=== PATIENT | male | born 2000 | race Caucasian/White ===

== ENCOUNTER 2019-02-04 19:52 | Inpatient (IN) | payer MEDICAID ==
[~2019-02-04] VITALS: Ht 180.3 cm; Wt 75.9 kg
[~2019-02-04 19:52] MED LIST: FOLI1TAB6 PO; GABA300C10 PO; THIA50CA PO
[2019-02-04] MEDS ORDERED: ONDANSETRON HCL 4 MG/2 ML VIAL ONE ×2 (20:27)
[2019-02-04] MEDS ORDERED: SODIUM CHLORIDE 0.9% 1,000 ML IVB ONE (20:39)
[2019-02-04] MEDS ORDERED: ACETAMINOPHEN 325 MG TAB PO ONE (21:00)
[2019-02-04] MEDS ORDERED: ONDANSETRON HCL 4 MG/2 ML VIAL IV ONE (21:00)
[2019-02-04 21:36] LABS: Basophils # (auto) 0 uL; Eosinophils # (auto) 0 uL; Eosinophils % (auto) 0.2 % (0.0-7.0); Lymphocytes % (auto) 6.3 % (10.0-50.0)
[2019-02-04 21:38] LABS: Basophils % (auto) 0.1 % (0.0-2.0); Hematocrit 46.5 % (41.0-53.0); Hemoglobin 16.4 g/dL (13.5-17.5); Lymphocytes # (auto) 0.7 uL; Mean Corpuscular Hemoglobin 34.6 pg (28.0-32.0); Mean Corpuscular Hgb Conc. 35.2 g/dL (32.0-36.0); Mean Corpuscular Volume 98.2 fL (80.0-100.0); Monocytes # (auto) 0.5 uL; Monocytes % (auto) 3.9 % (0.0-12.0); Neutrophils # (auto) 10.5 uL; Neutrophils % (auto) 89.5 % (37.0-80.0); Platelet Count (auto) 258 10^3/uL (140-450); Red Blood Cells 4.74 10^6/uL (4.5-5.90); Red Cell Distribution Width 12.6 % (11.8-14.3); White Blood Cell 11.7 10^3/uL (4.4-10.8)
[2019-02-04 21:57] LABS: Albumin 4.3 g/dL (3.4-5.0); Anion Gap 9 (5-15); Blood Alcohol < 3.0 mg/dL (0-5); Blood Urea Nitrogen 11 mg/dL (7-18); Calcium 8.7 mg/dL (8.5-10.1); Carbon Dioxide 27 mmol/L (21-32); Chloride 103 mmol/L (98-107); Glucose 102 mg/dL (74-106); Potassium 4.5 mmol/L (3.5-5.1); Sodium 139 mmol/L (136-145)
[2019-02-04 21:59] LABS: Alcohol, Urine < 3.0 mg/dL (0-5); Amphetamine Screen, Urine NEGATIVE (NEGATIVE); Barbiturate Scree,Urine NEGATIVE (NEGATIVE); Benzodiazephine Screen, Urine NEGATIVE (NEGATIVE); Cannabinoid Screen, Urine POSITIVE (NEGATIVE); Cocaine Screen, Urine NEGATIVE (NEGATIVE); Phencyclidine Screen, Urine NEGATIVE (NEGATIVE)
[2019-02-04] MEDS ORDERED: NICOTINE 21MG/24 HR TOPICAL PATCH TD ONE (22:00)
[2019-02-04 22:01] LABS: Alanine Aminotransferase 28 U/L (16-61); Alkaline Phosphatase 68 U/L (45-117); Aspartate Aminotransferase 25 U/L (15-37); BUN/Creatinine Ratio 10.7; Bilirubin, Total 0.4 mg/dL (0.2-1.0); GFR African American 118 mL/min; GFR Non-African American 98 mL/min; Total Protein 7.5 g/dL (6.4-8.2)
[2019-02-04 22:06] LABS: Opiate Scree,Urine NEGATIVE (NEGATIVE)
[2019-02-04] MEDS ORDERED: DOCUSATE SOD 100 MG CAP PO PRN (22:15)
[2019-02-04] MEDS ORDERED: HYDROcodone-ACET 5/325MG TAB PO PRN (22:15)
[2019-02-04] MEDS ORDERED: ACETAMINOPHEN 325 MG TAB PO PRN (22:15)
[2019-02-04] MEDS ORDERED: ONDANSETRON HCL 4 MG/2 ML VIAL IV PRN (22:15)
[2019-02-04] MEDS ORDERED: PHENYTOIN IV DILANTIN 1,000 MG in SODIUM CHL 0.9% 250 ML IV ONE (22:45)
[2019-02-04 23:20] VITALS: BP 157/70
--- NOTE | 2019-02-04 23:20 | NUR ---
MS admit from ER LILLY KOVACS admitted to [facility]. Patient oriented to AFTAB BARRY RN primary RN, unit, room, bed, and unit policies regarding patient care and visiting hours. Patient weighed by bed-scale and encouraged to call if he needs something. Fall, safety, and seizures precautions in place. Call light within reach. All questions and concerns addressed, patient verbalized understanding.
--- NOTE | 2019-02-04 23:25 | NUR ---
Seizure-like Activity Upon performing physical assessment, patient began to say, "Fuck, that is messed up . . . fuck . . fuck . . .". Attempted to ask patient what was wrong when seizure-like activity began. All surrounding objects removed off of patient. Patient presented with abrupt muscle tension, violent shaking of all four extremities, and throat gurgling. Patient was turned to his right side, and began to drool. Attempted to administer oxygen and attempted to suction saliva on outer surface of mouth, but due to violent shaking, attempt was unsuccessful. All four side rails raised. Staff members were instructed to step aside to prevent risk of injury. Hospitalist was paged by primary RNSonja regarding Ativan order. 2330: Seizure-like activity stopped. Additional RN performed nail-bed pressure, which patient responded to. Attempted to ask patient orientation questions, patient unable to respond at this time. Remained with patient since onset of seizure-like activity. 2341: PRN Ativan administered by primary RNSonja (see eMar). Patient resting quietly in bed with eyes closed, even and unlabored breathing. Fall, safety, and seizure precautions in place. Call light within reach. Will continue to monitor.
--- NOTE | 2019-02-04 23:30 | NUR ---
HOSPITALIST Received call back from hospitalist Bryant ESCALONA. New orders received, read back and verified. Will input and carry out
[2019-02-04] MEDS ORDERED: LORazepam 2MG/ML-1ML VIAL IV PRN (23:45)
[2019-02-04] MEDS ORDERED: PHENYTOIN SODIUM 50 MG/ML 2ML VIAL IV ONE (23:59)
[2019-02-05] MEDS ORDERED: PHENYTOIN SODIUM 50 MG/ML 2ML VIAL IV ONE
--- NOTE | 2019-02-05 | NUR ---
IV DRESSING Dressing changed to IV access at this time. Patient tolerated well. Will continue to monitor
--- NOTE | 2019-02-05 00:15 | NUR ---
Orientation Patient aroused to name upon entering room. Patient oriented x4, but lethargic possibly due to prn Ativan (see eMar). Attempted to ask admission questions at this time, but patient unable to stay awake. Will attempt admission at later time.
[2019-02-05] MEDS: SODIUM CHLORIDE 0.9% 1,000 ML IV SCH ×3 (00:56→18:17)
[2019-02-05 05:00] VITALS: BP 107/60
[2019-02-05 05:11] LABS: Basophils # (auto) 0 uL; Eosinophils # (auto) 0 uL; Lymphocytes # (auto) 1.4 uL; Monocytes # (auto) 0.7 uL; White Blood Cell 10.5 10^3/uL (4.4-10.8)
[2019-02-05 05:16] LABS: Basophils % (auto) 0.1 % (0.0-2.0); Hematocrit 43.7 % (41.0-53.0); Hemoglobin 15.3 g/dL (13.5-17.5); Lymphocytes % (auto) 13.5 % (10.0-50.0); Mean Corpuscular Hemoglobin 34.4 pg (28.0-32.0); Mean Corpuscular Hgb Conc. 35.1 g/dL (32.0-36.0); Mean Corpuscular Volume 97.9 fL (80.0-100.0); Monocytes % (auto) 6.8 % (0.0-12.0); Neutrophils # (auto) 8.3 uL; Neutrophils % (auto) 79.6 % (37.0-80.0); Nucleated Red Blood Cells % 0.1 %; Platelet Count (auto) 243 10^3/uL (140-450); Red Blood Cells 4.46 10^6/uL (4.5-5.90); Red Cell Distribution Width 12.3 % (11.8-14.3)
[2019-02-05 05:35] LABS: Calcium 8.4 mg/dL (8.5-10.1); Potassium 4.3 mmol/L (3.5-5.1)
[2019-02-05 05:37] LABS: BUN/Creatinine Ratio 10.6
--- NOTE | 2019-02-05 07:26 | NUR ---
Opening Shift Note Assumed care of patient, asleep and awakes to name and alert and oriented x4. No S/S of distress/SOB. Patient denies having any pain at this time. Bed in lowest and locked position with side rails up x2 and call light in reach. Instructed on POC and to call for assist PRN, will continue to monitor for changes Q1hr and PRN.
[2019-02-05 09:00] VITALS: BP 125/73
[2019-02-05] MEDS ORDERED: PHENYTOIN IV DILANTIN 500 MG in SODIUM CHL 0.9% 100 ML IV SCH (10:00)
--- NOTE | 2019-02-05 12:00 | NUR ---
IV insertion IV access obtained, via clean sterile technique by inserting 22 gauge catheter at RIGHT FA after 1 attempt(s). IV secured properly. No trauma to site. Patient tolerated well.
--- NOTE | 2019-02-05 12:00 | NUR ---
IV removal LEFT AC IV DC'd with clean sterile technique, catheter fully intact. Pressure dressing applied to site. Patient tolerated well.
[2019-02-05] MEDS ORDERED: THIAMINE 100mg/ml INJ (200mg/2ml VIAL) IV ONE (12:45)
[2019-02-05] MEDS ORDERED: MULTIPLE VITAMIN TAB PO ONE (12:45)
[2019-02-05 13:00] VITALS: BP 104/71
[2019-02-05 17:00] VITALS: BP 119/56
--- NOTE | 2019-02-05 19:40 | NUR ---
Opening Shift Note Assumed care of patient, AOx4. No S/S of distress/SOB or pain. Visitor at bedside. Seizure, fall, and safety precautions in place. Call light within reach. Instructed on POC and to call for assist PRN, will continue to monitor for changes Q1hr and PRN.
--- NOTE | 2019-02-05 21:00 | NUR ---
Larry Juarez MD, Dr at bedside, updating patient on plan of care.
--- NOTE | 2019-02-05 21:50 | NUR ---
AMA Patient off floor at this time.
[2019-02-05] MEDS ORDERED: LEVETIRACETAM 500 MG TAB PO SCH (22:00)
--- NOTE | 2019-02-05 22:17 | NUR ---
Back on floor Patient returned to room. No distress noted.
[2019-02-06] MEDS: SODIUM CHLORIDE 0.9% 1,000 ML IV SCH ×2 (04:14→14:14)
[2019-02-06 04:17] VITALS: BP 123/62
--- NOTE | 2019-02-06 07:40 | NUR ---
Received patient on saline lock. Possible discharge today as per report.
--- NOTE | 2019-02-06 09:10 | NUR ---
Patient asked to have his IV line removed. Explained to patient the IV access is needed for his IV medications as ordered, when he gets orders for discharge home, the IV line will be removed before discharge. Patient verbalized understanding.
[2019-02-06 09:29] VITALS: BP 123/79
[2019-02-06] MEDS ORDERED: THIAMINE 100mg/ml INJ (200mg/2ml VIAL) IV SCH (10:00)
[2019-02-06] MEDS ORDERED: MULTIPLE VITAMIN TAB PO SCH (10:00)
--- NOTE | 2019-02-06 10:38 | NUR ---
Patient off unit. Patient has signed AMA form to smoke placed in the patient's chart.
--- NOTE | 2019-02-06 11:40 | NUR ---
Patient refused the EEG. Francoise Wright came over that patient is already dressed up in his civilian clothes, waiting for discharge orders.
--- NOTE | 2019-02-06 11:55 | NUR ---
Patient in the room, waiting for the hospitalist to come over. Girlfrienchel Dangelo ([phone]) at bedside.
[2019-02-06 13:04] VITALS: BP 129/66
[2019-02-06 13:47] VITALS: BP 129/66
--- NOTE | 2019-02-06 14:10 | NUR ---
Discharge instructions given as ordered. Encourage to follow up with PMD as instructed. All questions and concerns addressed. Patient verbalized understanding. Medication reconciliation form completed and copy given to patient. IV removed with catheter intact, pressure dressing applied. Instructed the patient to make an appointment for EEG as ordered by Dr. Juarez that patient okay to have EEG as outpatient. Patient is aware he cannot drive yet as per Neurology. Patient is ambulatory, steady gait noted, patient refused to be taken to vehicle via wheelchair, patient with all personal belongings, accompanied by girlfriend. No distress noted at time of departure.
== END 2019-02-06 14:10 | disposition home or self-care (01) | DRG 53 ==
LOC: EDBD 19:52 → ER 19:57 → WEST WING 19:58
PROVIDERS: ADMIT Hospitalist; ATTEND Internal Medicine
DX: G40.909 Epilepsy, unspecified, not intractable, without status epilepticus (principal); D72.829 Elevated white blood cell count, unspecified; F10.239 Alcohol dependence with withdrawal, unspecified; F12.10 Cannabis abuse, uncomplicated; F41.9 Anxiety disorder, unspecified; F17.210 Nicotine dependence, cigarettes, uncomplicated; Z82.49 Family history of ischemic heart disease and other diseases of the circulatory system; Z83.3 Family history of diabetes mellitus
CPT/HCPCS: 36415; 71045; 80048; 80053; 80307; 80320; 82550; 85025; 96361; 96365; 96375; G0378; J2405

== ENCOUNTER 2019-04-01 11:57 | Emergency (ER) | payer MEDICAID ==
[~2019-04-01] VITALS: Ht 182.9 cm; Wt 70.3 kg
[2019-04-01] MEDS ORDERED: ONDANSETRON HCL 4 MG/2 ML VIAL IV ONE (13:00)
[2019-04-01] MEDS ORDERED: ACETAMINOPHEN 325 MG TAB PO ONE (13:00)
[2019-04-01 14:02] LABS: Basophils # (auto) 0 uL; Eosinophils # (auto) 0 uL; Hemoglobin 16.2 g/dL (13.5-17.5); Monocytes # (auto) 0.6 uL; Neutrophils # (auto) 9.3 uL
[2019-04-01 14:03] LABS: Basophils % (auto) 0.1 % (0.0-2.0); Eosinophils % (auto) 0.1 % (0.0-7.0); Hematocrit 46.2 % (41.0-53.0); Lymphocytes # (auto) 0.9 uL; Lymphocytes % (auto) 8.5 % (10.0-50.0); Mean Corpuscular Hemoglobin 33.9 pg (28.0-32.0); Mean Corpuscular Hgb Conc. 35.1 g/dL (32.0-36.0); Mean Corpuscular Volume 96.6 fL (80.0-100.0); Monocytes % (auto) 5.4 % (0.0-12.0); Neutrophils % (auto) 85.9 % (37.0-80.0); Platelet Count (auto) 262 10^3/uL (140-450); Red Blood Cells 4.78 10^6/uL (4.5-5.90); White Blood Cell 10.8 10^3/uL (4.4-10.8)
[2019-04-01 14:19] LABS: Albumin 4.1 g/dL (3.4-5.0); Calcium 9.1 mg/dL (8.5-10.1)
[2019-04-01 14:21] LABS: BUN/Creatinine Ratio 9.7
[2019-04-01 14:24] LABS: Bilirubin, Total 0.6 mg/dL (0.2-1.0); Total Protein 7.2 g/dL (6.4-8.2)
[2019-04-01 16:58] LABS: Amphetamine Screen, Urine NEGATIVE (NEGATIVE); Barbiturate Scree,Urine NEGATIVE (NEGATIVE); Benzodiazephine Screen, Urine NEGATIVE (NEGATIVE); Cocaine Screen, Urine NEGATIVE (NEGATIVE)
[2019-04-01 17:02] LABS: Alcohol, Urine < 3.0 mg/dL (0-5); Opiate Scree,Urine NEGATIVE (NEGATIVE); Phencyclidine Screen, Urine NEGATIVE (NEGATIVE)
[2019-04-01 17:03] LABS: Cannabinoid Screen, Urine POSITIVE (NEGATIVE)
[2019-04-01 17:45] VITALS: BP 116/73
== END 2019-04-01 18:04 | disposition home or self-care (01) ==
LOC: EDBD 11:57 → ER 12:00
DX: G40.909 Epilepsy, unspecified, not intractable, without status epilepticus (principal); F17.210 Nicotine dependence, cigarettes, uncomplicated; F12.10 Cannabis abuse, uncomplicated
CPT/HCPCS: 36415; 70450; 71045; 80053; 80307; 82962; 83735; 85025

== ENCOUNTER 2020-04-27 17:21 | Emergency (ER) | payer MEDICAID ==
[~2020-04-27] VITALS: Ht 182.9 cm; Wt 54.4 kg
[2020-04-27 19:47] LABS: Basophils # (auto) 0 10 ^3/uL (0-0.2)
[2020-04-27 19:52] LABS: Albumin 4.2 g/dL (3.4-5.0); Calcium 8.4 mg/dL (8.5-10.1); Magnesium 2.9 mg/dL (1.6-2.6); Potassium 3.7 mmol/L (3.5-5.1)
[2020-04-27 19:56] LABS: Bilirubin, Total 0.9 mg/dL (0.2-1.0); Total Protein 7.5 g/dL (6.4-8.2)
[2020-04-27 20:00] VITALS: BP 130/86
[2020-04-27 20:01] LABS: Basophils % (auto) 0.1 % (0.0-2.0); Eosinophils # (auto) 0 10 ^3/uL (0-0.8); Hematocrit 44.8 % (41.0-53.0); Lymphocytes # (auto) 0.4 10 ^3/uL (0.4-5.4); Lymphocytes % (auto) 3.4 % (10.0-50.0); Mean Corpuscular Hemoglobin 36.1 pg (28.0-32.0); Mean Corpuscular Hgb Conc. 35.7 g/dL (32.0-36.0); Mean Corpuscular Volume 101.4 fL (80.0-100.0); Monocytes # (auto) 0.7 10 ^3/uL (0-1.3); Monocytes % (auto) 5.2 % (0.0-12.0); Neutrophils # (auto) 12.1 10 ^3/uL (1.6-8.6); Neutrophils % (auto) 91.3 % (37.0-80.0); Platelet Count (auto) 267 10^3/uL (140-450); Red Blood Cells 4.42 10^6/uL (4.5-5.90); Red Cell Distribution Width 12.1 % (11.8-14.3); White Blood Cell 13.3 10^3/uL (4.4-10.8)
== END 2020-04-27 21:40 | disposition home or self-care (01) ==
LOC: EDBD 17:21 → ER 17:23
DX: R56.9 Unspecified convulsions (principal)
CPT/HCPCS: 36415; 70450; 71045; 80053; 82550; 82962; 83735; 85025; 96365; 96366; 99285; J1953; J7060

== ENCOUNTER 2022-09-25 14:53 | Emergency (ER) | payer MEDICAID ==
[~2022-09-25] VITALS: Ht 185.4 cm; Wt 75.0 kg
[2022-09-25 15:31] VITALS: BP 101/52
[2022-09-25] MEDS ORDERED: TETANUS-DIPTH-ACEL PERTUSSIS 0.5ML SYR Tdap IM ONE (16:30)
[2022-09-25] MEDS ORDERED: NEOMYCIN-BACITRACIN-POLYM UNITDOSE PKG TOP OINT TOP ONE (16:30)
[2022-09-25] MEDS ORDERED: IBUPROFEN 600 MG TAB PO ONE (16:30)
[2022-09-25] MEDS ORDERED: ACETAMINOPHEN 500 MG TAB PO ONE (16:30)
[2022-09-25] MEDS ORDERED: LIDOCAINE 2%HCL (LOCAL ANESTH.) INJ 20ML MDV ID ONE (16:30)
[2022-09-25] MEDS ORDERED: ACET-1304 PO (17:41)
[2022-09-25] MEDS ORDERED: CEPH250C PO (17:41)
[2022-09-25] MEDS ORDERED: IBU600T PO (17:41)
== END 2022-09-25 18:57 | disposition home or self-care (01) ==
LOC: EDBD 14:53 → EDUNIT# 14:53 → ER 14:53
DX: S61.212A Laceration without foreign body of right middle finger without damage to nail, initial encounter (principal); S60.031A Contusion of right middle finger without damage to nail, initial encounter; W22.8XXA Striking against or struck by other objects, initial encounter; Y93.89 Activity, other specified; Y92.89 Other specified places as the place of occurrence of the external cause; Y99.8 Other external cause status
CPT/HCPCS: 73140; 90471; 90715

== ENCOUNTER 2022-10-19 23:17 | Emergency (ER) | payer MEDICAID ==
[~2022-10-19] VITALS: Ht 182.9 cm; Wt 81.8 kg
[~2022-10-19 23:17] MED LIST changes: +ACET-1304 PO; +CEPH250C PO; -FOLI1TAB6 PO; -GABA300C10 PO; +IBU600T PO; -THIA50CA PO
[2022-10-20 00:03] LABS: Eosinophils # (auto) 0.1 10 ^3/uL (0-0.8); Mean Corpuscular Volume 96.8 fL (80.0-100.0); Monocytes # (auto) 0.4 10 ^3/uL (0-1.3); Nucleated Red Blood Cells % 0.1 %
[2022-10-20 00:06] LABS: Basophils # (auto) 0.1 10 ^3/uL (0-0.2); Basophils % (auto) 0.8 % (0.0-2.0); Eosinophils % (auto) 1.5 % (0.0-7.0); Hematocrit 47.5 % (41.0-53.0); Hemoglobin 16.7 g/dL (13.5-17.5); Lymphocytes # (auto) 3.8 10 ^3/uL (0.4-5.4); Lymphocytes % (auto) 51.8 % (10.0-50.0); Mean Corpuscular Hgb Conc. 35.1 g/dL (32.0-36.0); Monocytes % (auto) 5.3 % (0.0-12.0); Neutrophils % (auto) 40.6 % (37.0-80.0); Red Blood Cells 4.91 10^6/uL (4.5-5.90); Red Cell Distribution Width 12.1 % (11.8-14.3); White Blood Cell 7.3 10^3/uL (4.4-10.8)
[2022-10-20 00:27] LABS: Albumin 3.8 g/dL (3.4-5.0); Calcium 8.6 mg/dL (8.5-10.1); Potassium 3.6 mmol/L (3.5-5.1)
[2022-10-20 00:30] LABS: Acetaminophen 21.4 ug/mL (10-30); BUN/Creatinine Ratio 12.9 (10.0-20.0); Salicylate 3.6 mg/dL (2.8-20.0)
[2022-10-20 00:32] LABS: Bilirubin, Total 0.3 mg/dL (0.2-1.0); Total Protein 6.9 g/dL (6.4-8.2)
[2022-10-20] MEDS ORDERED: HYDROmorphone HCL 2 MG/ML VL/or syr IV ONE (00:45)
[2022-10-20] MEDS ORDERED: LORazepam 2MG/ML-1ML VIAL IV ONE (02:15)
[2022-10-20 03:15] VITALS: BP 132/108; PULSE 63; RESP 20; TEMP 98; O2SAT 99
== END 2022-10-20 03:54 | disposition short-term general hospital (02) ==
LOC: ER 23:17 → EDBD 23:17 → EDUNIT# 23:17 → ER 10-20 03:54
DX: S92.002A Unspecified fracture of left calcaneus, initial encounter for closed fracture (principal); S92.001A Unspecified fracture of right calcaneus, initial encounter for closed fracture; F17.210 Nicotine dependence, cigarettes, uncomplicated; F15.90 Other stimulant use, unspecified, uncomplicated; Z79.1 Long term (current) use of non-steroidal anti-inflammatories (NSAID); Z79.899 Other long term (current) drug therapy; W13.2XXA Fall from, out of or through roof, initial encounter; Y93.39 Activity, other involving climbing, rappelling and jumping off; Y92.89 Other specified places as the place of occurrence of the external cause; Y99.8 Other external cause status
CPT/HCPCS: 36415; 70450; 71045; 71250; 72125; 73700; 74176; 80053; 80320; 80329; 85025; 96374; 96375; 99285; J1170; J2060

== ENCOUNTER 2023-02-03 00:15 | Emergency (ER) | payer MEDICAID ==
[~2023-02-03] VITALS: Ht 182.9 cm; Wt 76.7 kg
[2023-02-03 00:40] VITALS: BP 123/85; PULSE 103; RESP 18; O2SAT 97
[2023-02-03] MEDS ORDERED: NEOMYCIN-BACITRACIN-POLYM UNITDOSE PKG TOP OINT TOP ONE (03:30)
[2023-02-03] MEDS ORDERED: cefTRIAXone SOD 1,000 MG VL IM ONE (03:30)
[2023-02-03] MEDS ORDERED: TETANUS-DIPTH-ACEL PERTUSSIS 0.5ML SYR Tdap IM ONE (03:30)
[2023-02-03] MEDS ORDERED: IBUPROFEN 800 MG TAB PO ONE (03:30)
[2023-02-03] MEDS ORDERED: IBUP1TAB5 PO (03:43)
[2023-02-03] MEDS ORDERED: MUPI2OIN2 EX (03:43)
[2023-02-03] MEDS ORDERED: CYCL-839 PO (03:43)
[2023-02-03] MEDS ORDERED: CEPH500C PO (03:43)
== END 2023-02-03 07:09 | disposition home or self-care (01) ==
LOC: ER 00:15
DX: S06.0X0A Concussion without loss of consciousness, initial encounter (principal); S01.01XA Laceration without foreign body of scalp, initial encounter; S13.4XXA Sprain of ligaments of cervical spine, initial encounter; F17.210 Nicotine dependence, cigarettes, uncomplicated; F12.10 Cannabis abuse, uncomplicated; Y04.8XXA Assault by other bodily force, initial encounter; Y93.89 Activity, other specified; Y92.89 Other specified places as the place of occurrence of the external cause; Y99.9 Unspecified external cause status
CPT/HCPCS: 70450; 70486; 72125; 90471; 90715; 96372; 99285; J0696